=== PATIENT | female | born 1995 | race African-American/Black ===

== ENCOUNTER 2016-08-15 10:40 | Emergency (ER) | payer OTHER, SELFPAY ==
[~2016-08-15] VITALS: Ht 177.8 cm; Wt 68.9 kg
[2016-08-15] MEDS ORDERED: REGL10TA6 PO (11:09)
[2016-08-15] MEDS ORDERED: PEPC1TAB4 PO (11:09)
[2016-08-15] MEDS ORDERED: LORA10CA PO (11:09)
[2016-08-15] MEDS ORDERED: EPIN0.3I6 IJ (11:09)
[2016-08-15] MEDS ORDERED: SYMB16INH INH (11:09)
[2016-08-15] MEDS ORDERED: ALBU17IN INH (11:09)
[2016-08-15] MEDS ORDERED: ZOFR4TAB3 PO (11:09)
[2016-08-15] MEDS ORDERED: MONT10TA2 PO (11:09)
[2016-08-15] MEDS ORDERED: CODE30TA3 PO (11:09)
[2016-08-15] MEDS ORDERED: BENA25CA4 PO (11:09)
[2016-08-15] MEDS ORDERED: KETOROLAC 30 MG/ML VIAL (J1885) IV ONE (11:45)
[2016-08-15] MEDS ORDERED: NS 1,000 ML IV ONE (11:45)
--- NOTE | 2016-08-15 12:15 | REP ---
Chest one-view HISTORY: Chest pain Comparison: None The lungs are clear. The heart is normal in size. The pulmonary vasculature is normal in appearance. Impression: No acute disease. Signed by Scotty Aiken MD 08/15/2016 12:06 P
[2016-08-15 13:18] VITALS: BP 115/59
--- NOTE | 2016-08-15 18:17 | ECGEPIP ---
Stationary ECG Study [facility] - ED Test Date: 2016-08-15 Pat Name: KENNEY SILVA Department: Room: - Gender: F [employer]: RN : 1995 Requested By: Cecile Pedro Order Number: [id number] Reading MD: Cecile Pedro Measurements Intervals [place] Rate: 57 P: 52 MD: 159 QRS: 32 QRSD: 85 T: 33 QT: 412 QTc: 403 Interpretive Statements SINUS BRADYCARDIA WITH MARKED SINUS ARRHYTHMIA NSTTW ABNORMALITY NO PRIOR FOR COMPARISON Electronically Signed On 08-15-2016 18:16:50 EDT by Cecile Pedro
== END 2016-08-15 14:07 | disposition home or self-care (01) ==
LOC: M ED 11:55
DX: F41.9 Anxiety disorder, unspecified (principal); M94.0 Chondrocostal junction syndrome [Tietze]
CPT/HCPCS: 71010; 85379; 93005; 96374; 99283; J1885